=== PATIENT | female | born 2000 | race Caucasian/White ===

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

== ENCOUNTER → 2020-05-24 | Emergency (ER) | payer OTHER ==
[~2020-05-24] VITALS: Ht 170.2 cm; Wt 88.6 kg
[2020-05-24 16:51] VITALS: BP 102/68; PULSE 84; TEMP 98.6
== END ==
LOC: COL.ER 16:41
DX: R10.9 Unspecified abdominal pain (principal); Z53.21 Procedure and treatment not carried out due to patient leaving prior to being seen by health care provider

== ENCOUNTER 2020-09-25 17:41 | Emergency (ER) | payer OTHER ==
[~2020-09-25] VITALS: Ht 170.2 cm; Wt 84.1 kg
[2020-09-25 17:54] VITALS: TEMP 97.9
[2020-09-25 20:48] LABS: COLLECTION METHOD CLEAN CATCH
[2020-09-25 21:23] LABS: MUCOUS Present /lpf; PH 5 (5-8); URINE APPEARANCE Hazy; URINE BACTERIA Occasional /hpf; URINE BILIRUBIN Negative (NEGATIVE); URINE BLOOD Negative (NEGATIVE); URINE COLOR Amber; URINE GLUCOSE Negative (NEGATIVE); URINE KETONE 2+ (NEGATIVE); URINE LEUKOCYTE ESTERASE 3+ (NEGATIVE); URINE NITRATE Negative (NEGATIVE); URINE PROTEIN(semi-quant) 2+ (NEGATIVE); URINE RBC 0-2 /hpf
[2020-09-25 22:06] LABS: BASO % 0.3 % (0.0-2.0); EOS # 0.1 (0.0-0.7); GRAN # 5.5 (1.4-6.5); GRAN % 64.1 % (42.2-75.2); HEMOGLOBIN 12.5 g/dl (12.0-15.0); LYMPH # 2.3 (1.2-3.4); LYMPH % 26.8 % (20.0-51.0); MEAN CELL VOLUME 84 fl (80.0-95.0); MEAN CORPUSCULAR HEMOGLOBIN 30 pg (26.0-32.0); MEAN CORPUSCULAR HGB CONC 35 g/dl (33.0-37.0); MONO # 0.7 (0.1-0.6); MONO % 7.5 % (1.7-9.3); PLATELET COUNT 191 K/mm3 (130-400); RED BLOOD COUNT 4.23 M/mm3 (4.10-5.30); REDCELL DISTRIBUTION WIDTH-CV 13.4 % (11.5-14.5)
[2020-09-25 22:11] LABS: HEMATOCRIT 35.4 % (35.0-45.0)
[2020-09-25 22:17] LABS: ALBUMIN 3.8 gm/dL (3.5-5.0); BILIRUBIN,TOTAL 0.7 mg/dL (0.0-1.0); CALCIUM 9.2 mg/dL (8.4-10.2); CREATININE, serum 0.61 (0.52-1.25); TOTAL PROTEIN 6.7 gm/dL (6.4-8.2)
[2020-09-25] MEDS ORDERED: CEPHALEXIN500 M1 PO (23:06)
[2020-09-25] MEDS ORDERED: PHENERGAN25 MG RC (23:07)
[2020-09-25 23:23] VITALS: BP 134/89; PULSE 75
== END 2020-09-25 23:20 | disposition home or self-care (01) ==
LOC: COL.ER 17:41
PROVIDERS: Nurse Practitioner
DX: O21.9 Vomiting of pregnancy, unspecified (principal); F17.210 Nicotine dependence, cigarettes, uncomplicated; Z3A.12 12 weeks gestation of pregnancy
CPT/HCPCS: J2550; J7030

== ENCOUNTER 2020-10-23 05:24 | Inpatient (IN) | payer OTHER ==
[~2020-10-23] VITALS: Ht 170.2 cm; Wt 72.7 kg
[~2020-10-23 05:24] MED LIST changes: +PHENERGAN25 MG RC
[2020-10-23 05:58] LABS: BASO % 0.1 % (0.0-2.0); EOS % 0.4 % (0-4.0); GRAN # 5.2 (1.4-6.5); GRAN % 69.5 % (42.2-75.2); HEMOGLOBIN 12.6 g/dl (12.0-15.0); LYMPH # 1.5 (1.2-3.4); LYMPH % 20.3 % (20.0-51.0); MEAN CELL VOLUME 82 fl (80.0-95.0); MEAN CORPUSCULAR HEMOGLOBIN 30 pg (26.0-32.0); MEAN CORPUSCULAR HGB CONC 37 g/dl (33.0-37.0); MEAN PLATELET VOLUME 10.5 fl (7.4-10.4); MONO # 0.7 (0.1-0.6); MONO % 9.4 % (1.7-9.3); PLATELET COUNT 149 K/mm3 (130-400); RED BLOOD COUNT 4.15 M/mm3 (4.10-5.30); REDCELL DISTRIBUTION WIDTH-CV 14.6 % (11.5-14.5)
[2020-10-23 05:59] LABS: HEMATOCRIT 34.2 % (35.0-45.0)
[2020-10-23 06:15] LABS: ALBUMIN 3.8 gm/dL (3.5-5.0); BILIRUBIN,TOTAL 1.1 mg/dL (0.0-1.0); CALCIUM 9.6 mg/dL (8.4-10.2); CREATININE, serum 0.47 (0.52-1.25); TOTAL PROTEIN 6.9 gm/dL (6.4-8.2)
[2020-10-23 06:21] LABS: POTASSIUM 2.9 mmol/L (3.4-5.0)
[2020-10-23 06:35] LABS: COLLECTION METHOD CLEAN CATCH
[2020-10-23 06:49] LABS: MUCOUS Present /lpf; PH 6 (5-8); URINE APPEARANCE Hazy; URINE BACTERIA None Seen /hpf; URINE BILIRUBIN Negative (NEGATIVE); URINE BLOOD 3+ (NEGATIVE); URINE COLOR Amber; URINE GLUCOSE Negative (NEGATIVE); URINE KETONE 2+ (NEGATIVE); URINE LEUKOCYTE ESTERASE Trace (NEGATIVE); URINE NITRATE Negative (NEGATIVE); URINE PROTEIN(semi-quant) 2+ (NEGATIVE); URINE RBC >50 /hpf; URINE UROBILINOGEN >=4.0 mg/dL (NEGATIVE)
[2020-10-23 10:53] LABS: MEAN CELL VOLUME 85 fl (80.0-95.0); MEAN CORPUSCULAR HGB CONC 35 g/dl (33.0-37.0); MEAN PLATELET VOLUME 9.8 fl (7.4-10.4); PLATELET COUNT 118 K/mm3 (130-400); RED BLOOD COUNT 3.32 M/mm3 (4.10-5.30); REDCELL DISTRIBUTION WIDTH-CV 14.5 % (11.5-14.5)
[2020-10-23 11:04] LABS: HEMATOCRIT 28.3 % (35.0-45.0); HEMOGLOBIN 9.9 g/dl (12.0-15.0); MEAN CORPUSCULAR HEMOGLOBIN 30 pg (26.0-32.0)
[2020-10-23 11:26] LABS: BAND 6 % (0-10); LYMPHOCYTE 6 % (20.0-51.0); METAMYELOCYTE 1 % (0-0); NEUTROPHILS 83 % (42.0-75.2)
[2020-10-23 11:27] LABS: PLATELET ESTIMATE NORMAL (NORMAL)
--- NOTE | 2020-10-23 14:00 | NUR ---
PATIENT TO 222 FOR ADMISSION. PATIENT TRANSFERRED FROM WHEELCHAIR TO BED. ASSESMENT COMPLETE, VITALS OBTAINED. PATIENT STATES THE PAIN IS MORE IN HER SIDE AT THIS MOMENT 03/29
[2020-10-23 14:10] VITALS: BP 100/52; PULSE 80; TEMP 98
--- NOTE | 2020-10-23 14:27 | NUR ---
PATIENT STATES HER DUE DATE IS 04/12/2021 15 WEEKS 4 DAYS
--- NOTE | 2020-10-23 14:55 | NUR ---
DOPPLERED HEART TONES 150S FAXED RECORDS RELEASE TO [facility]
[2020-10-23 16:19] LABS: BASO % 0.1 % (0.0-2.0); GRAN # 7.2 (1.4-6.5); GRAN % 86.4 % (42.2-75.2); LYMPH # 0.6 (1.2-3.4); LYMPH % 7.7 % (20.0-51.0); MEAN CELL VOLUME 85 fl (80.0-95.0); MEAN CORPUSCULAR HGB CONC 36 g/dl (33.0-37.0); MEAN PLATELET VOLUME 10.7 fl (7.4-10.4); MONO # 0.4 (0.1-0.6); MONO % 5.3 % (1.7-9.3); PLATELET COUNT 127 K/mm3 (130-400); RED BLOOD COUNT 3.27 M/mm3 (4.10-5.30); REDCELL DISTRIBUTION WIDTH-CV 14.6 % (11.5-14.5)
[2020-10-23 16:29] LABS: HEMATOCRIT 27.9 % (35.0-45.0); HEMOGLOBIN 9.9 g/dl (12.0-15.0); MEAN CORPUSCULAR HEMOGLOBIN 30 pg (26.0-32.0)
[2020-10-23 17:00] VITALS: BP 103/58; PULSE 77
[2020-10-23 20:00] VITALS: BP 95/50; PULSE 77; TEMP 99
--- NOTE | 2020-10-23 20:00 | NUR ---
FHR doppler 150-155sbpm. Pt requesting pain medication. States her pain is in her lower back on her right side. Reports pain being constant when asked. Assessment completed. VSS. Plan of care explained to pt. Questions answered.
[2020-10-23 23:30] VITALS: BP 91/48; PULSE 77; TEMP 99.1
--- NOTE | 2020-10-24 01:15 | NUR ---
Pt requesting that her IV be changed due to her arm hurting from having to keep her arm straight. New IV started to [place]fth[place].
[2020-10-24 04:30] VITALS: BP 108/57; PULSE 83; TEMP 98.7
[2020-10-24 07:48] LABS: ALBUMIN 2.4 gm/dL (3.5-5.0); BILIRUBIN,TOTAL 0.7 mg/dL (0.0-1.0); CREATININE, serum 0.4 (0.52-1.25); POTASSIUM 3.1 mmol/L (3.4-5.0); TOTAL PROTEIN 4.7 gm/dL (6.4-8.2)
[2020-10-24 08:13] LABS: BASO % 0.3 % (0.0-2.0); EOS % 0.5 % (0-4.0); GRAN % 66.4 % (42.2-75.2); HEMATOCRIT 24.4 % (35.0-45.0); HEMOGLOBIN 8.5 g/dl (12.0-15.0); LYMPH # 1.3 (1.2-3.4); LYMPH % 21.9 % (20.0-51.0); MEAN CELL VOLUME 87 fl (80.0-95.0); MEAN CORPUSCULAR HEMOGLOBIN 30 pg (26.0-32.0); MEAN CORPUSCULAR HGB CONC 35 g/dl (33.0-37.0); MEAN PLATELET VOLUME 10.5 fl (7.4-10.4); MONO # 0.6 (0.1-0.6); MONO % 10.6 % (1.7-9.3); PLATELET COUNT 112 K/mm3 (130-400); RED BLOOD COUNT 2.81 M/mm3 (4.10-5.30)
[2020-10-24 08:32] VITALS: BP 95/57; PULSE 80; TEMP 97.9
--- NOTE | 2020-10-24 09:24 | NUR ---
Initial visit attempt; Patient resting, Can Striper left card letting patient know of the availability of spiritual care at our hospital.
[2020-10-24 12:37] VITALS: BP 97/45; PULSE 73; TEMP 98.2
[2020-10-24 16:56] VITALS: BP 88/44; PULSE 71; TEMP 98.5
--- NOTE | 2020-10-24 19:00 | NUR ---
0 MOANING AND C/O BACK AND ABD PAIN. UP TO BR WITH ASSIST AND VOIDED 200CC. URINE STRAINED. RETURNED TO BED. IV INFUSING. REQUESTING PAIN MED AND ZOFRAN 1919 MORPHINE 2MG IV AND ZOFRAN 4MG IV GIVEN. LIGHTS OUT TO REST.
[2020-10-24 20:30] VITALS: BP 102/45; PULSE 81; TEMP 98.6
--- NOTE | 2020-10-24 21:00 | NUR ---
2100 PO MEDS GIVEN AND TAKEN SLOWLY. 2200 TYLENOL 1000MG PO TAKEN AND IMMEDIATELY THREW UP AFTER LAST TYLENOL. ONE TYLENOL NOTED IN EMESIS SINGH.
--- NOTE | 2020-10-24 23:00 | NUR ---
2300 TALKING TO ON PHONE. FEELING BETTER. MORE CHEERFUL AND TALKATIVE.
[2020-10-25] VITALS: BP 102/51; PULSE 80; TEMP 98.9
[2020-10-25 04:00] VITALS: BP 110/50; PULSE 78; TEMP 98.5
--- NOTE | 2020-10-25 04:00 | NUR ---
0400 MORPHINE 2 MG IV AND ZOFRAN 4 MG IV GIVEN. WARM BLANKETS TO BACK FOR C/O RIGHT FLANK PAIN. OFFERED SOMETHING TO EAT OR DRINK AND REFUSED.
[2020-10-25 06:30] VITALS: BP 117/60; PULSE 77; TEMP 98.7
--- NOTE | 2020-10-25 06:55 | NUR ---
PT VOMITING DARK GREEN EMESIS WITH VERY SMALL AMOUNT OF BLOOD INTERMIXED. PT HAD BLOODY NOSE AFTER VOMITING WELL.
--- NOTE | 2020-10-25 07:30 | NUR ---
PT REPORTING SHE FEELS LIKE HER CHEST IS TIGHT. 02 SATS 100% ON ROOM AIR. LUNG SOUNDS CLEAR ALL CORMIER. STATES THIS HAS HAPPENED TWICE NOW-THE LAST TIME SHE TOOK MORPHINE AND THIS MOST RECENT TIME.
[2020-10-25 07:37] LABS: ALANINE AMINOTRANSFERASE 66 U/L (4-34); ALBUMIN 2.7 gm/dL (3.5-5.0); ALKALINE PHOSPHATASE 55 U/L (50-136); ANION GAP 7 mmol/L (7-16); AST,SGOT 57 U/L (15-37); BILIRUBIN,TOTAL 1.2 mg/dL (0.0-1.0); CALCIUM 8.2 mg/dL (8.4-10.2); CARBON DIOXIDE 22 mmol/L (22-30); CHLORIDE 103 mmol/L (98-107); CREATININE, serum 0.32 (0.52-1.25); GLUCOSE 82 mg/dL (74-106); LIPASE 920 U/L (23-300); POTASSIUM 3.2 mmol/L (3.4-5.0); SODIUM 131 mmol/L (137-145); TOTAL PROTEIN 5.2 gm/dL (6.4-8.2)
[2020-10-25 07:47] LABS: BLOOD UREA NITROGEN < 2 mg/dL (7-17)
--- NOTE | 2020-10-25 09:03 | NUR ---
LEFT VOICEMAIL WITH DR STAPLES'S NURSE TO CALL BACK REGARDING GI CONSULT ORDERED
--- NOTE | 2020-10-25 09:14 | NUR ---
SPOKE WITH LIANG AT [facility] REGARDING UROLOGY CONSULT FOR DR MORENO.
--- NOTE | 2020-10-25 09:45 | NUR ---
RELEASE OF MEDICAL RECORDS FORM FAXED TO [facility] FOR RECORDS. ALSO CALLED THE [facility] DEL[facility] REQUESTING RECORDS BE FAXED SINCE PT IS AN INPATIENT IN THE HOSPITAL. SPOKE WITH LIANG AT THE CLINIC.
--- NOTE | 2020-10-25 11:00 | NUR ---
VERONIKA MOJICA, WITH [facility] HERE TO REVIEW PT CASE AND TALK WITH PT.
[2020-10-25 11:45] LABS: COLLECTION METHOD CLEAN CATCH
[2020-10-25 11:59] LABS: MUCOUS Present /lpf; PH 6 (5-8); URINE APPEARANCE Hazy; URINE BACTERIA None Seen /hpf; URINE BILIRUBIN Negative (NEGATIVE); URINE BLOOD 3+ (NEGATIVE); URINE COLOR Amber; URINE GLUCOSE Negative (NEGATIVE); URINE KETONE 2+ (NEGATIVE); URINE LEUKOCYTE ESTERASE Trace (NEGATIVE); URINE NITRATE Negative (NEGATIVE); URINE PROTEIN(semi-quant) 1+ (NEGATIVE); URINE RBC >50 /hpf; URINE UROBILINOGEN >=4.0 mg/dL (NEGATIVE)
--- NOTE | 2020-10-25 12:15 | NUR ---
1130-DR STAPLES HERE FOR GI CONSULT. DISCUSSES SEVERAL POSSIBLE CAUSES OF PAIN BUT IS UNCERTAIN AT THIS TIME THE ORIGIN. WILL POSSIBLY DO AN MRI AT A LATER TIME IF PAIN DOES NOT SUBSIDE. 1200-TERRELL WITH DIETETICS CALLS STATING SHE HAS BEEN TALKING OVER THE PT'S CASE WITH PHARMACY AND RECOMMENDS ADDING 1MG FOLIC ACID AND 1 VIAL MULTI VITAMINS TO THE PT'S IV BAG. 1203-CALLED DR CR WITH UPDATE ON CONSULTS FROM DIETARY, GI, AND UROLOGY INCLUDING ABOVE RECOMMENDATION FOR ADDITIVES TO IV BAG. DR CR WANTS ORDER PLACED TO ADD THE 1MG FOLIC ACID AND 1 VIAL MULTIVITAMINS.
[2020-10-25 12:25] LABS: MEAN CELL VOLUME 87 fl (80.0-95.0); MEAN CORPUSCULAR HGB CONC 35 g/dl (33.0-37.0); MEAN PLATELET VOLUME 10.6 fl (7.4-10.4); PLATELET COUNT 97 K/mm3 (130-400); RED BLOOD COUNT 3.05 M/mm3 (4.10-5.30); REDCELL DISTRIBUTION WIDTH-CV 14.8 % (11.5-14.5)
[2020-10-25 12:28] LABS: HEMATOCRIT 26.5 % (35.0-45.0); HEMOGLOBIN 9.3 g/dl (12.0-15.0); MEAN CORPUSCULAR HEMOGLOBIN 30 pg (26.0-32.0)
[2020-10-25 12:35] VITALS: BP 93/41; PULSE 68; TEMP 98.7
--- NOTE | 2020-10-25 12:35 | NUR ---
O2 SATS 100% ON ROOM AIR
--- NOTE | 2020-10-25 13:30 | NUR ---
PT TO XRAY VIA WHEELCHAIR FOR INTRAVENOUS PYELOGRAM.
[2020-10-25 17:09] VITALS: BP 108/54; PULSE 71; TEMP 99.2
[2020-10-25 20:45] VITALS: BP 101/40; PULSE 85; TEMP 98.5
--- NOTE | 2020-10-25 21:30 | NUR ---
Patient denies N/V and states that she is hungry, she request to eat solid food and ask "who needs to be called for that to happen". Dr. Barksdale called and updated on patient's request to eat solid food. He would like the patient to stay on clear liquids throughout the night because of continued pain and the need for morphine frequently for pain relief. I discussed this plan with the patient. The patient states "I'm starving so I would rather have food than morphine". I informed the patient that when speaking to Dr. Barksdale I asked if her pain changed throughout the night would her diet be able to be changed and he stated that he would like to continue clear liquids for the night. The patient states "well I'll take the morphine then". She rates pain at 8/10.
[2020-10-26 00:15] VITALS: BP 100/58; PULSE 89; TEMP 98
[2020-10-26 05:00] VITALS: BP 94/41; PULSE 75; TEMP 98.2
[2020-10-26 07:50] LABS: HEMOGLOBIN 10.4 g/dl (12.0-15.0); MEAN CELL VOLUME 88 fl (80.0-95.0); MEAN CORPUSCULAR HEMOGLOBIN 30 pg (26.0-32.0); MEAN CORPUSCULAR HGB CONC 35 g/dl (33.0-37.0); MEAN PLATELET VOLUME 10.7 fl (7.4-10.4); PLATELET COUNT 151 K/mm3 (130-400); RED BLOOD COUNT 3.42 M/mm3 (4.10-5.30); REDCELL DISTRIBUTION WIDTH-CV 14.8 % (11.5-14.5)
[2020-10-26 07:59] LABS: ALANINE AMINOTRANSFERASE 79 U/L (4-34); ALBUMIN 3.2 gm/dL (3.5-5.0); ALKALINE PHOSPHATASE 66 U/L (50-136); AMYLASE 161 U/L (30-110); ANION GAP 5 mmol/L (7-16); AST,SGOT 66 U/L (15-37); BILIRUBIN,TOTAL 1.8 mg/dL (0.0-1.0); CALCIUM 8.6 mg/dL (8.4-10.2); CARBON DIOXIDE 24 mmol/L (22-30); CHLORIDE 102 mmol/L (98-107); CREATININE, serum 0.41 (0.52-1.25); GLUCOSE 74 mg/dL (74-106); LIPASE 886 U/L (23-300); POTASSIUM 3.2 mmol/L (3.4-5.0); SODIUM 132 mmol/L (137-145)
[2020-10-26 08:05] LABS: BLOOD UREA NITROGEN < 2 mg/dL (7-17)
[2020-10-26 08:31] LABS: CHOLESTEROL RISK RATIO 3.5
[2020-10-26 09:52] LABS: BAND 5 % (0-10); LYMPHOCYTE 29 % (20.0-51.0); NEUTROPHILS 59 % (42.0-75.2); PLATELET ESTIMATE NORMAL (NORMAL)
[2020-10-26 10:00] VITALS: BP 107/55; PULSE 81; TEMP 97.8
[2020-10-26 16:00] VITALS: BP 94/51; PULSE 86; TEMP 98.3
[2020-10-26 21:00] VITALS: BP 113/49; PULSE 82; TEMP 97.7
[2020-10-26 23:37] LABS: COMPLEMENT-C3 127 mg/dL (83-193); COMPLEMENT-C4 24 mg/dL (15-57)
[2020-10-27 01:00] VITALS: BP 119/62; PULSE 92; TEMP 98.5
[2020-10-27 05:00] VITALS: BP 106/53; PULSE 76; TEMP 98.6
[2020-10-27 06:59] LABS: MEAN CELL VOLUME 87 fl (80.0-95.0); MEAN CORPUSCULAR HGB CONC 35 g/dl (33.0-37.0); MEAN PLATELET VOLUME 10.3 fl (7.4-10.4); PLATELET COUNT 127 K/mm3 (130-400); RED BLOOD COUNT 2.84 M/mm3 (4.10-5.30)
[2020-10-27 07:07] LABS: ALANINE AMINOTRANSFERASE 76 U/L (4-34); ALBUMIN 2.3 gm/dL (3.5-5.0); ALKALINE PHOSPHATASE 56 U/L (50-136); AMYLASE 110 U/L (30-110); ANION GAP 1 mmol/L (7-16); AST,SGOT 55 U/L (15-37); BILIRUBIN,TOTAL 0.4 mg/dL (0.0-1.0); CALCIUM 7.8 mg/dL (8.4-10.2); CARBON DIOXIDE 26 mmol/L (22-30); CHLORIDE 106 mmol/L (98-107); CREATININE, serum 0.36 (0.52-1.25); GLUCOSE 91 mg/dL (74-106); LIPASE 937 U/L (23-300); POTASSIUM 3.3 mmol/L (3.4-5.0); SODIUM 133 mmol/L (137-145); TOTAL PROTEIN 4.6 gm/dL (6.4-8.2)
[2020-10-27 07:08] LABS: BLOOD UREA NITROGEN < 2 mg/dL (7-17); HEMATOCRIT 24.6 % (35.0-45.0); HEMOGLOBIN 8.7 g/dl (12.0-15.0); MEAN CORPUSCULAR HEMOGLOBIN 31 pg (26.0-32.0)
[2020-10-27 07:30] LABS: EOSINOPHIL 2 % (0-4); LYMPHOCYTE 42 % (20.0-51.0); NEUTROPHILS 50 % (42.0-75.2); PLATELET ESTIMATE DECREASED (NORMAL)
[2020-10-27 08:30] VITALS: BP 124/78; PULSE 78; TEMP 98.2
[2020-10-27 13:28] LABS: COLLECTION METHOD CLEAN CATCH
[2020-10-27 13:38] LABS: MUCOUS Present /lpf; PH 6 (5-8); URINE APPEARANCE Hazy; URINE BACTERIA Rare /hpf; URINE BILIRUBIN Negative (NEGATIVE); URINE BLOOD 2+ (NEGATIVE); URINE COLOR Yellow; URINE GLUCOSE Negative (NEGATIVE); URINE KETONE Negative (NEGATIVE); URINE LEUKOCYTE ESTERASE 2+ (NEGATIVE); URINE NITRATE Negative (NEGATIVE); URINE PROTEIN(semi-quant) Negative (NEGATIVE); URINE UROBILINOGEN Negative (NEGATIVE)
[2020-10-27 13:41] VITALS: BP 120/55; PULSE 91; TEMP 97.5
[2020-10-27 16:14] VITALS: BP 122/76; TEMP 98.4
--- NOTE | 2020-10-27 18:25 | NUR ---
Pt calls out for assistance. States "I just woke up. How often can I have that pain medication" Pt disconnects SCD's, gets out of bed quickly with no sign of discomfort. EMAR pulled up in room and pt notified of frequency of Martin. Will bring dose as soon as it is available.
--- NOTE | 2020-10-27 19:10 | NUR ---
pt declines Omena @ this time, as previously asked for/planned @ 1819. Pt states "my back hurt when i first got up but it's fine now"
--- NOTE | 2020-10-27 20:00 | NUR ---
Visiting with family and friends on phone/zoom. cheerful, denies needs.
[2020-10-27 21:15] VITALS: BP 110/64; PULSE 86; TEMP 98.4
[2020-10-28 00:15] VITALS: BP 98/52; PULSE 78; TEMP 98.1
--- NOTE | 2020-10-28 00:15 | NUR ---
Pt reports "my back pain is gone, now I have a crampy pain in my stomach" pt points to sub sternal area. ABD non-tender to palpation. Offerred pt additional pain medication, which she declined stating " I feel like if that would helped the pain medication you gave me before would have taken care of it" hot pack made for pt to try. Talking on Zoom.
[2020-10-28 06:39] LABS: BASO % 0.2 % (0.0-2.0); EOS # 0.1 (0.0-0.7); EOS % 1.9 % (0-4.0); GRAN % 43.5 % (42.2-75.2); LYMPH # 2.2 (1.2-3.4); LYMPH % 46.3 % (20.0-51.0); MEAN CELL VOLUME 86 fl (80.0-95.0); MEAN CORPUSCULAR HGB CONC 35 g/dl (33.0-37.0); MONO # 0.4 (0.1-0.6); MONO % 7.9 % (1.7-9.3); PLATELET COUNT 138 K/mm3 (130-400); RED BLOOD COUNT 2.92 M/mm3 (4.10-5.30); REDCELL DISTRIBUTION WIDTH-CV 14.8 % (11.5-14.5)
[2020-10-28 06:52] LABS: HEMATOCRIT 25.2 % (35.0-45.0); HEMOGLOBIN 8.8 g/dl (12.0-15.0); MEAN CORPUSCULAR HEMOGLOBIN 30 pg (26.0-32.0)
[2020-10-28 06:55] LABS: ALANINE AMINOTRANSFERASE 56 U/L (4-34); ALBUMIN 2.4 gm/dL (3.5-5.0); ALKALINE PHOSPHATASE 46 U/L (50-136); ANION GAP 3 mmol/L (7-16); AST,SGOT 28 U/L (15-37); BILIRUBIN,TOTAL 0.4 mg/dL (0.0-1.0); CALCIUM 8.4 mg/dL (8.4-10.2); CARBON DIOXIDE 26 mmol/L (22-30); CHLORIDE 105 mmol/L (98-107); CREATININE, serum 0.37 (0.52-1.25); GLUCOSE 85 mg/dL (74-106); LIPASE 873 U/L (23-300); POTASSIUM 3.3 mmol/L (3.4-5.0); SODIUM 134 mmol/L (137-145); TOTAL PROTEIN 4.6 gm/dL (6.4-8.2)
[2020-10-28 07:01] LABS: BLOOD UREA NITROGEN < 2 mg/dL (7-17)
[2020-10-28 09:00] VITALS: BP 117/57; PULSE 93; TEMP 97.7
--- NOTE | 2020-10-28 09:15 | NUR ---
RN INTO ROOM. VS/ASSESSMENT OBTAINED. PT EATING AM MEAL AND ON FACE TIME WITH FRIEND. DENIES PAIN AND NAUSEA AT THIS TIME. DISCUSSED POC. QUESTIONS ENCOURAGED AND ANSWERED.
[2020-10-28] MEDS ORDERED: NORCO 325 MG-51 TAB PO (10:11)
[2020-10-28] MEDS ORDERED: ZOFRAN ODT4 MG PO (10:12)
[2020-10-28] MEDS ORDERED: FERROUS SU325 MG/TAB PO (10:12)
[2020-10-28] MEDS ORDERED: PROTONIX20 MG PO (10:12)
[2020-10-28] MEDS ORDERED: PROMETHAZINE12.5 M5 PO (10:14)
[2020-10-28 14:00] VITALS: BP 104/60; PULSE 90; TEMP 97.6
[2020-10-28 16:00] VITALS: BP 113/62; PULSE 81; TEMP 99.7
== END 2020-10-28 17:35 | disposition home or self-care (01) | DRG 831 ==
LOC: COL.ER 05:24 → OB 12:48 → EDBEDREQ 13:39 → EDBEDREQSVC 13:39 → OB 10-28 17:35
PROVIDERS: Emergency Medicine; Family Medicine; Internal Medicine Gastroenterology; Obstetrics & Gynecology; Surgery; ADMIT Student in an Organized Health Care Education/Training Program
DX: O99.612 Diseases of the digestive system complicating pregnancy, second trimester (principal); K85.90 Acute pancreatitis without necrosis or infection, unspecified; N13.6 Pyonephrosis; E87.1 Hypo-osmolality and hyponatremia; E87.6 Hypokalemia; O99.282 Endocrine, nutritional and metabolic diseases complicating pregnancy, second trimester; O23.02 Infections of kidney in pregnancy, second trimester; O99.112 Other diseases of the blood and blood-forming organs and certain disorders involving the immune mechanism complicating pregnancy, second trimester; O21.0 Mild hyperemesis gravidarum; D69.6 Thrombocytopenia, unspecified; O99.012 Anemia complicating pregnancy, second trimester; D64.9 Anemia, unspecified; Z3A.15 15 weeks gestation of pregnancy; Z87.891 Personal history of nicotine dependence; Z20.822 Contact with and (suspected) exposure to COVID-19
CPT/HCPCS: C9113; J0696; J2270; J2405; J2550; J3480; J7030; Q9967

== ENCOUNTER 2021-09-14 23:56 | Emergency (ER) | payer OTHER ==
[~2021-09-14] VITALS: Ht 170.2 cm; Wt 90.0 kg
[~2021-09-14 23:56] MED LIST changes: +FERROUS SU325 MG/TAB PO; +NORCO 325 MG-51 TAB PO; +PROMETHAZINE12.5 M5 PO; +PROTONIX20 MG PO; +ZOFRAN ODT4 MG PO
[2021-09-15 00:29] LABS: COLLECTION METHOD CLEAN CATCH
[2021-09-15 00:38] LABS: HEMATOCRIT 41.2 % (35.0-45.0); HEMOGLOBIN 13.8 g/dl (12.0-15.0); MEAN CELL VOLUME 82 fl (80.0-95.0); MEAN CORPUSCULAR HEMOGLOBIN 28 pg (26-32); MEAN CORPUSCULAR HGB CONC 34 g/dl (33.0-37.0); MEAN PLATELET VOLUME 9.4 fl (7.4-10.4); PLATELET COUNT 240 K/mm3 (130-400); RED BLOOD COUNT 5.02 M/mm3 (4.10-5.30); REDCELL DISTRIBUTION WIDTH-CV 13.7 % (11.5-14.5)
[2021-09-15 00:44] LABS: TRICYCLIC ANTIDEPRESS URINE NEGATIVE
[2021-09-15 00:46] LABS: URINE APPEARANCE Clear (CLEAR/HAZY); URINE COLOR Yellow (YELLOW)
[2021-09-15 00:47] LABS: PH 7 (5-8); URINE BILIRUBIN Negative (NEGATIVE); URINE BLOOD Negative (NEGATIVE); URINE GLUCOSE Negative (NEGATIVE); URINE KETONE Negative (NEGATIVE); URINE LEUKOCYTE ESTERASE 1+ (NEGATIVE); URINE NITRATE Negative (NEGATIVE); URINE PROTEIN(semi-quant) Negative (NEGATIVE); URINE UROBILINOGEN Negative (NEGATIVE)
[2021-09-15 00:51] LABS: SQUAMOUS EPITHELIAL 0-2 /hpf (0-10); URINE BACTERIA Rare /hpf (NONE SEEN); URINE RBC 0-2 /hpf (0-2)
[2021-09-15 00:56] LABS: ALANINE AMINOTRANSFERASE 15 U/L (0-55); ALBUMIN 3.9 gm/dL (3.5-5.0); ALKALINE PHOSPHATASE 65 U/L (40-150); ANION GAP 11 mmol/L (7-16); AST,SGOT 15 U/L (5-34); BILIRUBIN,TOTAL 0.3 mg/dL (0.2-1.2); BLOOD UREA NITROGEN 16 mg/dL (7-19); CALCIUM 9.4 mg/dL (8.4-10.2); CARBON DIOXIDE 24 mmol/L (22-29); CHLORIDE 106 mmol/L (98-107); GLUCOSE 88 mg/dL (70-99); POTASSIUM 4.2 mmol/L (3.5-4.5); SODIUM 141 mmol/L (136-145)
[2021-09-15 00:57] LABS: ACETAMINOPHEN < 1.0 ug/mL (10-30); ALCOHOL(ethanol),MEDICAL < 10 mg/dL (0-10); SALICYLATE < 5.0 mg/dL (15.0-30.0)
[2021-09-15 01:16] LABS: TSH w REFLEX 1.492 uIU/mL (0.350-4.940)
[2021-09-15 01:49] LABS: BASOPHIL 1 % (0-2); EOSINOPHIL 3 % (0-4); LYMPHOCYTE 37 % (20.0-51.0); METAMYELOCYTE 1 % (0-0); NEUTROPHILS 51 % (42.0-75.2); PLATELET ESTIMATE NORMAL (NORMAL)
[2021-09-15 01:53] LABS: OVALOCYTES 1+
[2021-09-15 06:58] VITALS: BP 117/65; PULSE 74; TEMP 97
== END 2021-09-15 07:00 ==
LOC: COL.ER 23:56
PROVIDERS: Emergency Medicine
DX: R45.851 Suicidal ideations (principal); F17.210 Nicotine dependence, cigarettes, uncomplicated; Z20.822 Contact with and (suspected) exposure to COVID-19